=== PATIENT | male | born 1945 | race Caucasian/White ===

== ENCOUNTER → 2018-01-27 | Emergency (ER) | payer OTHER ==
[~2018-01-27] VITALS: Ht 180.3 cm; Wt 86.2 kg
[~2018-01-27] MED LIST: ATENOLOL25 MG; DIOVAN320 MG; JANUMET 50-1,01 EACH; JANUMET 50-1,1 UDTAB; LIPITOR40 MG; METFORMIN HCL1000 MG; ZITHROMAX500 MG PO; ZOCOR40 MG
== END | disposition home or self-care (01) ==
LOC: ER 10:50
DX: J32.8 Other chronic sinusitis (principal); J11.1 Influenza due to unidentified influenza virus with other respiratory manifestations

== ENCOUNTER → 2018-01-31 | Emergency (ER) | payer OTHER ==
[~2018-01-31] VITALS: Ht 180.3 cm; Wt 86.2 kg
== END | disposition home or self-care (01) ==
LOC: ER 11:07
DX: K59.00 Constipation, unspecified (principal); R10.84 Generalized abdominal pain

== ENCOUNTER → 2018-05-11 | Emergency (ER) | payer OTHER ==
[~2018-05-11] VITALS: Ht 182.9 cm; Wt 86.2 kg
== END | disposition designated cancer center or children's hospital (05) ==
LOC: ER 12:23
DX: I21.29 ST elevation (STEMI) myocardial infarction involving other sites (principal); E11.65 Type 2 diabetes mellitus with hyperglycemia; R07.89 Other chest pain; J11.1 Influenza due to unidentified influenza virus with other respiratory manifestations

== ENCOUNTER 2022-03-13 11:14 | Emergency (ER) | payer OTHER ==
[~2022-03-13] VITALS: Ht 180.3 cm; Wt 90.7 kg
== END 2022-03-13 14:49 | disposition home or self-care (01) ==
LOC: ER 11:14
DX: U07.1 COVID-19 (principal); E11.9 Type 2 diabetes mellitus without complications; Z79.84 Long term (current) use of oral hypoglycemic drugs

== ENCOUNTER 2023-08-05 16:29 | Emergency (ER) | payer OTHER ==
[~2023-08-05] VITALS: Ht 180.3 cm; Wt 86.2 kg
== END 2023-08-05 19:27 | disposition home or self-care (01) ==
LOC: ER 16:29
DX: R21 Rash and other nonspecific skin eruption (principal)